=== PATIENT | female | born 1995 | race Caucasian/White ===

== ENCOUNTER 2017-11-23 12:31 | Inpatient (IN) | payer OTHER ==
[2017-11-23] MEDS ORDERED: BUTORPHANOL 2 MG INJ IV (13:30)
[2017-11-23] MEDS ORDERED: IBUPROFEN 600 MG TAB PO (13:30)
[2017-11-23] MEDS ORDERED: HYDROCODONE/APAP (5/325) TAB PO (13:30)
[2017-11-23] MEDS ORDERED: METHYLERGONOVINE 0.2 MG INJ IM (13:30)
[2017-11-23] MEDS ORDERED: OXYTOCIN 30 UNITS/LR 500 ML IV (13:30)
[2017-11-23] MEDS ORDERED: CARBOPROST 250 MCG INJ IM (13:30)
[2017-11-23] MEDS ORDERED: MISOPROSTOL 200 MCG TAB PR (13:30)
[2017-11-23 13:48] LABS: ADD MAN DIFF? NO
[2017-11-23 13:51] LABS: WHITE BLOOD COUNT 6.9 10^3/ul (4.8-10.8)
[2017-11-23 13:51] LABS: BASOPHILS % 0.3 % (0.0-2.0); EOSINOPHILS % 0.4 % (0.0-7.0); HEMATOCRIT 36.3 % (37.0-47.0); HEMOGLOBIN 12.8 g/dl (12.0-16.0); LYMPHOCYTES # 1.5 10^3/ul (0.8-2.9); LYMPHOCYTES % 21.4 % (18.0-55.0); MEAN CORPUSCULAR HEMOGLOBIN 30.1 pg (29.0-33.0); MEAN CORPUSCULAR HGB CONC 35.3 g/dl (32.0-37.0); MEAN CORPUSCULAR VOLUME 85.4 fl (72.0-104.0); MEAN PLATELET VOLUME 10.3 fl (7.4-10.4); MONOCYTE # 0.5 10^3/ul (0.3-0.9); MONOCYTES % 7.4 % (0.0-13.0); NEUTROPHIL # 4.8 10^3/ul (1.6-7.5); NEUTROPHILS % 69.3 % (30.0-74.0); PLATELET COUNT 263 10^3/UL (140-415); RED BLOOD COUNT 4.25 10^6/ul (4.20-5.40); RED CELL DISTRIBUTION WIDTH 12.6 % (11.5-14.5)
[2017-11-23 14:08] LABS: INR 0.82; PROTIME 11.4 Sec (11.9-14.9); PT RATIO 0.9
[2017-11-23 14:09] LABS: PARTIAL THROMBOPLASTIN TIME 28.7 Sec (25.0-35.0)
[2017-11-23] MEDS: LACTATED RINGER'S 1,000 ML IV ×3 (14:10→23:26)
[2017-11-23] MEDS: DINOPROSTONE 10 MG VAG SUPP VAG (14:28)
[2017-11-23 14:41] LABS: HEPATITIS B SURFACE ANTIGEN NEGATIVE (NEGATIVE)
[2017-11-23 15:41] LABS: AMPHETAMINE/METHAMPHETAMINE Negative (NEGATIVE); BARBITURATES Negative (NEGATIVE); BENZODIAZEPINES Negative (NEGATIVE); CANNABINOIDS Negative (NEGATIVE); COCAINE Negative (NEGATIVE); OPIATES Negative (NEGATIVE)
[2017-11-23 19:53] LABS: RAPID PLASMA REAGIN NONREACTIVE (NR)
[2017-11-23] MEDS: BUTORPHANOL 2 MG INJ IV (22:34)
[2017-11-24] MEDS: LACTATED RINGER'S 1,000 ML IV ×3 (09:04→16:22)
[2017-11-24] MEDS: OXYTOCIN 30 UNITS/LR 500 ML IV ×3 (11:43→23:01)
[2017-11-24] MEDS ORDERED: ONDANSETRON 4 MG INJ IV ×2 (15:30→21:00)
[2017-11-24] MEDS ORDERED: DIPHENHYDRAMINE 50 MG INJ IV (15:30)
[2017-11-24] MEDS ORDERED: FENTAnyl 2MCG/ML-ROPIV 0.2% 100 ML BAG EPI (15:30)
[2017-11-24] MEDS ORDERED: NALOXONE (0.4 MG/ML) INJ IV (15:30)
[2017-11-24] MEDS ORDERED: EPHEDrine SULFATE 50 MG/5 ML SYG IV (15:30)
[2017-11-24] MEDS: LIDOCAINE 1% (MPF) 30 ML INJ INJ (18:16)
[2017-11-24] MEDS: OXYTOCIN 30 UNITS/LR 500 ML IVPB (20:55)
[2017-11-24] MEDS ORDERED: ACETAMINOPHEN 325 MG TAB PO (21:00)
[2017-11-24] MEDS ORDERED: HYDROCODONE/APAP (5/325) TAB PO ×2 (21:00)
[2017-11-24] MEDS: SENNA/DOCUSATE NA (8.6MG/50MG) TAB PO (21:00)
[2017-11-24] MEDS ORDERED: OXYCODONE/ASPIRIN (4.88/325) TAB PO ×2 (21:00)
[2017-11-24] MEDS: URSODIOL 300 MG CAP PO (22:22)
[2017-11-25] MEDS: IBUPROFEN 600 MG TAB PO ×4 (00:32→17:35)
[2017-11-25] MEDS: WITCH HAZEL/GLYCERIN PAD PR (02:52)
[2017-11-25] MEDS: BENZOCAINE 20% 56 ML SPRAY TOP (02:53)
[2017-11-25] MEDS: DIBUCAINE 1% 30 GM OINT PR (02:53)
[2017-11-25] MEDS: LANOLIN 7 GM TUBE TOP (02:54)
[2017-11-25] MEDS: SENNA/DOCUSATE NA (8.6MG/50MG) TAB PO ×2 (09:00→21:59)
[2017-11-25] MEDS: URSODIOL 300 MG CAP PO ×3 (09:00→21:59)
[2017-11-25 09:25] LABS: ADD MAN DIFF? NO
[2017-11-25 09:38] LABS: BASOPHILS % 0.2 % (0.0-2.0); EOSINOPHILS % 0.3 % (0.0-7.0); HEMATOCRIT 31.5 % (37.0-47.0); LYMPHOCYTES # 1.6 10^3/ul (0.8-2.9); LYMPHOCYTES % 10.9 % (18.0-55.0); MEAN CORPUSCULAR HEMOGLOBIN 30.1 pg (29.0-33.0); MEAN CORPUSCULAR HGB CONC 34.9 g/dl (32.0-37.0); MEAN CORPUSCULAR VOLUME 86.1 fl (72.0-104.0); MEAN PLATELET VOLUME 10.6 fl (7.4-10.4); MONOCYTE # 1.1 10^3/ul (0.3-0.9); MONOCYTES % 7.3 % (0.0-13.0); NEUTROPHIL # 11.8 10^3/ul (1.6-7.5); NEUTROPHILS % 80.5 % (30.0-74.0); PLATELET COUNT 227 10^3/UL (140-415); RED BLOOD COUNT 3.66 10^6/ul (4.20-5.40); RED CELL DISTRIBUTION WIDTH 12.7 % (11.5-14.5)
[2017-11-25 09:38] LABS: WHITE BLOOD COUNT 14.6 10^3/ul (4.8-10.8)
[2017-11-25 09:51] LABS: ALANINE AMINOTRANSFERASE 122 IU/L (13-69); ALBUMIN 2.5 g/dl (3.3-4.9); ALBUMIN/GLOBULIN RATIO 0.86; ALKALINE PHOSPHATASE 217 IU/L (42-121); ANION GAP 8 (8-16); ASPARTATE AMINO TRANSFERASE 69 IU/L (15-46); BLOOD UREA NITROGEN 5 mg/dl (7-20); CALCIUM 8.6 mg/dl (8.4-10.2); CARBON DIOXIDE 25 mmol/L (21-31); CHLORIDE 105 mmol/L (97-110); CREATININE 0.68 mg/dl (0.44-1.00); GLUCOSE 72 mg/dl (70-220); POTASSIUM 3.4 mmol/L (3.5-5.1); SODIUM 135 mmol/L (135-144); TOTAL PROTEIN 5.4 g/dl (6.1-8.1)
[2017-11-26] MEDS: IBUPROFEN 600 MG TAB PO ×4 (01:25→17:54)
[2017-11-26] MEDS: MEASLES,MUMPS,RUBELLA VACCINE INJ SC* (09:00)
[2017-11-26] MEDS: SENNA/DOCUSATE NA (8.6MG/50MG) TAB PO (09:26)
[2017-11-26] MEDS: URSODIOL 300 MG CAP PO ×2 (09:26→12:40)
[2017-11-26] MEDS: INFLUENZA VIRUS VACCINE 0.5 ML (DISPENSING) IM* (12:42)
== END 2017-11-26 18:55 | disposition home or self-care (01) | DRG 775 ==
LOC: OBT 12:31 → L-D 12:33 → PP1 11-24 20:37 → L-D 12:52 → OBT 13:09 → L-D 13:14
PROVIDERS: Obstetrics & Gynecology
PROC: 10E0XZZ Delivery of Products of Conception, External Approach (ICD-10-PCS; principal; 2017-11-24)
PROC: 0HQ9XZZ Repair Perineum Skin, External Approach (ICD-10-PCS; 2017-11-24)
PROC: 3E033VJ Introduction of Other Hormone into Peripheral Vein, Percutaneous Approach (ICD-10-PCS; 2017-11-24)
DX: O60.14X0 Preterm labor third trimester with preterm delivery third trimester, not applicable or unspecified (principal); O70.0 First degree perineal laceration during delivery; Z37.0 Single live birth; Z3A.36 36 weeks gestation of pregnancy
CPT/HCPCS: 62319; 80053; 80307; 85025; 85610; 85730; 86592; 86900; 86901; 87340